=== PATIENT | female | born 1965 | race Caucasian/White ===

== ENCOUNTER 2022-03-24 09:36 | Emergency (ER) | payer MEDICAID ==
[~2022-03-24] VITALS: Ht 175.3 cm; Wt 57.1 kg
[2022-03-24 10:16] LABS: Basophils # (auto) 0 10 ^3/uL (0-0.2); Basophils % (auto) 0.6 % (0.0-2.0); Eosinophils # (auto) 0.2 10 ^3/uL (0-0.8); Eosinophils % (auto) 3.5 % (0.0-7.0); Hematocrit 41.3 % (36.0-46.0); Hemoglobin 13.5 g/dL (12.2-16.2); Lymphocytes # (auto) 1.8 10 ^3/uL (0.4-5.4); Lymphocytes % (auto) 35.4 % (10.0-50.0); Mean Corpuscular Hemoglobin 30.2 pg (28.0-32.0); Mean Corpuscular Hgb Conc. 32.8 g/dL (32.0-36.0); Mean Corpuscular Volume 92.1 fL (80.0-100.0); Monocytes # (auto) 0.5 10 ^3/uL (0-1.3); Monocytes % (auto) 9.1 % (0.0-12.0); Neutrophils # (auto) 2.7 10 ^3/uL (1.6-8.6); Neutrophils % (auto) 51.4 % (37.0-80.0); Nucleated Red Blood Cells % 0.1 %; Red Blood Cells 4.49 10^6/uL (4.0-5.20); Red Cell Distribution Width 13.1 % (11.8-14.3); White Blood Cell 5.2 10^3/uL (4.4-10.8)
[2022-03-24 10:29] LABS: Albumin 3.6 g/dL (3.4-5.0); Potassium 4.2 mmol/L (3.5-5.1)
[2022-03-24 10:32] LABS: BUN/Creatinine Ratio 20.8; Bilirubin, Total 0.4 mg/dL (0.2-1.0); Total Protein 6.9 g/dL (6.4-8.2)
[2022-03-24 14:53] VITALS: BP 147/94
== END 2022-03-24 14:53 | disposition home or self-care (01) ==
LOC: ER 09:41
DX: I10 Essential (primary) hypertension (principal); R51.9 Headache, unspecified; J45.909 Unspecified asthma, uncomplicated; F15.10 Other stimulant abuse, uncomplicated; Z98.51 Tubal ligation status
CPT/HCPCS: 36415; 36600; 80053; 82805; 83735; 84484; 85025; 93005

== ENCOUNTER 2022-06-23 08:48 | Emergency (ER) | payer MEDICAID ==
[2022-06-23] MEDS ORDERED: methylPREDNISolone SOD SUCC 125 MG/2 ML VL IV ONE (09:15)
[2022-06-23] MEDS ORDERED: AZITHROMYCIN 500MG/ 250ML 250 ML IV ONE (09:15)
[2022-06-23] MEDS ORDERED: cefTRIAXone 1GM/50ML D5W 50 ML IV ONE (09:15)
[2022-06-23 09:30] LABS: Basophils # (auto) 0.1 10 ^3/uL (0-0.2); Basophils % (auto) 0.5 % (0.0-2.0); Eosinophils # (auto) 0.1 10 ^3/uL (0-0.8); Eosinophils % (auto) 0.7 % (0.0-7.0); Hematocrit 36.7 % (36.0-46.0); Hemoglobin 12.6 g/dL (12.2-16.2); Lymphocytes # (auto) 1.8 10 ^3/uL (0.4-5.4); Lymphocytes % (auto) 15.9 % (10.0-50.0); Mean Corpuscular Hemoglobin 31.1 pg (28.0-32.0); Mean Corpuscular Hgb Conc. 34.2 g/dL (32.0-36.0); Mean Corpuscular Volume 90.8 fL (80.0-100.0); Neutrophils # (auto) 8.2 10 ^3/uL (1.6-8.6); Neutrophils % (auto) 73.9 % (37.0-80.0); Red Blood Cells 4.04 10^6/uL (4.0-5.20); Red Cell Distribution Width 12.9 % (11.8-14.3); White Blood Cell 11.1 10^3/uL (4.4-10.8)
[2022-06-23 10:05] LABS: Albumin 3.1 g/dL (3.4-5.0); Potassium 4.6 mmol/L (3.5-5.1)
[2022-06-23 10:08] LABS: BUN/Creatinine Ratio 21.1; Bilirubin, Total 0.6 mg/dL (0.2-1.0); Total Protein 6.9 g/dL (6.4-8.2)
== END 2022-06-23 09:17 | disposition left against medical advice (07) ==
LOC: ER 08:48
DX: J45.901 Unspecified asthma with (acute) exacerbation (principal); B34.9 Viral infection, unspecified; I10 Essential (primary) hypertension; E03.9 Hypothyroidism, unspecified
CPT/HCPCS: 36415; 80053; 83880; 84484; 85025; 85379

== ENCOUNTER 2025-04-06 10:45 | Inpatient (IN) | payer MEDICAID ==
[~2025-04-06] VITALS: Ht 170.2 cm; Wt 59.2 kg
--- NOTE | 2025-04-06 11:00 | ECG ---
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
--- NOTE | 2025-04-06 12:11 | ED.PDOC ---
SOB-HPI HPI Comments This is a 59 year old female GAMA presenting to the ED with chief complaint of SOB. Patient reports that she has been experiencing SOB with associated right lower chest pain for the past few days. Patient relays that she was seen at [facility] 2 days ago where she was diagnosed with pneumonia, but she had no relief from the care she received there, leaving AMA. Patient denies any N/V, cough, fever, chills, or hemoptysis. 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 History Family History Family History: Unobtainable Social History Smoker: Non-Smoker Alcohol: Occasionally Drugs: Methamphetamine Lives In: Home Constitutional: denies: chills, diaphoresis, fatigue, fever, malaise, sweats, weakness, others EENTM: denies: blurred vision, double vision, ear bleeding, ear discharge, ear drainage, ear pain, ear ringing, eye pain, eye redness, hearing loss, mouth pain, mouth swelling, nasal discharge, nose bleeding, nose congestion, nose pain, photophobia, tearing, throat pain, throat swelling, voice changes, others Respiratory: reports: shortness of breath; denies: cough, hemoptysis, orthopnea, SOB at rest, SOB with excertion, stridor, wheezing, others Cardiovascular: reports: chest pain; denies: dizzy spells, diaphoresis, Dyspnea on exertion, edema, irregular heart beat, left arm pain, lightheadedness, palpitations, PND, syncope, others Gastrointestinal: denies: abdomen distended, abdominal pain, blood streaked bowels, constipated, diarrhea, dysphagia, difficulty swallowing, hematemesis, melena, nausea, poor appetite, poor fluid intake, rectal bleeding, rectal pain, vomiting, others Genitourinary: denies: abnormal vagina bleeding, burning, dyspareunia, dysuria, flank pain, frequency, hematuria, incontinence, pain, , vagina discharge, urgency, others Neurological: denies: dizziness, fainting, headache, left sided numbness, left sided weakness, numbness, paresthesia, pre-existing deficit, right sided numbness, right sided weakness, seizure, speech problems, tingling, tremors, weakness, others Musculoskeletal: denies: back pain, gout, joint pain, joint swelling, muscle pain, muscle stiffness, neck pain, others Integumetry: denies: bruises, change in color, change in hair/nails, dryness, laceration, lesions, lumps, rash, wounds, others Allergic/Immunocompromised: denies: Difficulty Healing, Frequent Infections, Hives, Itching, others Hematologic/Lymphatic: denies: anemia, blood clots, easy bleeding, easy bruising, swollen glands, others Endocrine: denies: excessive hunger, excessive sweating, excessive thirst, excessive urination, flushing, intolerance to cold, intolerance to heat, unexplained weight gain, unexplained weight loss, others Psychiatric: denies: anxiety, bipolar disorder, depression, hopeless, panic disorder, schizophrenia, sleepless, suicidal, others All Other Systems: Reviewed and Negative Physical Exam General Appearance: No Apparent Distress, Normal HEENT: Normal ENT Inspection, Pharynx Normal, TMs Normal Neck: Full Range of Motion, Non-Tender, Normal, Normal Inspection Respiratory: Chest Non-Tender, Lungs Clear, No Accessory Muscle Use, Other (Tachypneic) Cardiovascular: No Edema, No JVD, No Murmur, No Gallop, Normal Peripheral Pulses, Tachycardia Breast Exam: Deferred Gastrointestinal: No Organomegaly, Non Tender, No Pulsatile Mass, Normal Bowel Sounds, Soft Genitalia: Deferred Pelvic: Deferred Rectal: Deferred Extremities: No calf tenderness, Normal capillary refill, Normal inspection, Normal range of motion, Non-tender, No pedal edema Musculoskeletal : Apperance: Normal 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 Was a procedure done?: No Differential Dx Differential Diagnosis: Hyponatremia, Myocardial infarction, Pneumonia, PSVT, Sinusitis, Peritonsillar Abscess X-Ray, Labs, Meds, VS Vital Signs Date Time Temp Pulse Resp B/P (MAP) Pulse Ox O2 Delivery O2 Flow Rate FiO2 04/06/25 15:53 22 97 Room Air 04/06/25 15:53 98.8 93 22 149/94 (112) 97 98.8 04/06/25 15:01 98.1 96 18 138/92 (107) 97 98.1 04/06/25 13:23 98.3 98 16 140/94 (109) 97 98.3 04/06/25 10:51 96 04/06/25 10:47 98.4 92 20 156/90 100 98.4 Lab Test 04/06/25 13:34 04/06/25 12:36 04/06/25 12:22 Range/Units Troponin I High Sensitivity < 3 L 3 L </=34 ng/L White Blood Count 14.6 H 4.4-10.8 10^3/uL Red Blood Count 4.25 4.0-5.20 10^6/uL Hemoglobin 12.9 12.2-16.2 g/dL Hematocrit 38.1 36.0-46.0 % Mean Corpuscular Volume 89.8 80.0-100.0 fL Mean Corpuscular Hemoglobin 30.5 28.0-32.0 pg Mean Corpuscular Hemoglobin Concent 34.0 32.0-36.0 g/dL Red Cell Distribution Width 13.4 11.8-14.3 % Platelet Count 291 140-450 10^3/uL Mean Platelet Volume 9.2 6.9-10.8 fL Neutrophils (%) (Auto) 82.1 H 37.0-80.0 % Lymphocytes (%) (Auto) 10.0 10.0-50.0 % Monocytes (%) (Auto) 7.3 0.0-12.0 % Eosinophils (%) (Auto) 0.5 0.0-7.0 % Basophils (%) (Auto) 0.1 0.0-2.0 % Neutrophils # (Auto) 12.0 H 1.6-8.6 10 ^3/uL Lymphocytes # (Auto) 1.5 0.4-5.4 10 ^3/uL Monocytes # (Auto) 1.1 0-1.3 10 ^3/uL Eosinophils # (Auto) 0.1 0-0.8 10 ^3/uL Basophils # (Auto) 0 0-0.2 10 ^3/uL Nucleated Red Blood Cells 0.0 % Sodium Level 138 136-145 mmol/L Potassium Level 2.9 L 3.5-5.1 mmol/L Chloride Level 97 L 98-107 mmol/L Carbon Dioxide Level 30 20-31 mmol/L Anion Gap 11 5-15 Blood Urea Nitrogen 11 9-23 mg/dL Creatinine 0.90 0.550-1.02 mg/dL Glomerular Filtration Rate Calc 74 >90 mL/min BUN/Creatinine Ratio 12.2 10.0-20.0 Serum Glucose 124 H 74-106 mg/dL Calcium Level 9.9 8.7-10.4 mg/dL Urine Color Yellow Yellow Urine Clarity Turbid H Clear Urine pH 6.5 5.0-9.0 Urine Specific [place] 1.033 1.001-1.035 Urine Protein 2+ H Negative Urine Ketones Negative Negative Urine Blood 1+ H Negative /uL Urine Nitrite Negative Negative Urine Bilirubin Negative Negative Urine Urobilinogen 3 H Negative mg/dL Urine Leukocyte Esterase 3+ Negative /uL Urine RBC 13 0 - 4 /hpf Urine Microscopic WBC 142 H 0-5 /HPF Urine Squamous Epithelial Cells Mod <5 /hpf Urine Bacteria Few H None Seen /hpf Urine Mucus Few None Seen Urine Glucose Normal Normal mg/dL Time of 1ST Reevaluation: 13:07 Reevaluation 1ST: Unchanged Patient Education/Counseling: Diagnosis, Treatment Family Education/Counseling: No Family Present SEPSIS Sepsis Screen Date sepsis recognized/suspect: Apr 06, 2025 Time Sepsis recognized/suspect: 1051 Recent Procedure: No On Antibiotic Therapy: Yes Respiratory Rate >20: No Heart Rate >90: Yes Temp<36 C (96.8 F) or >38.3 C: No SBP <90 or MAP <65 mmHG: No New Acute Mental Status Change: No Is the patient on CPAP, BIPAP,: No Physician Orders Chest Portable (04/06/25 12:10) Electrocardigram (04/06/25 12:10) Blood Culture (04/06/25 12:10) Electrocardigram (04/06/25 13:10) Electrocardigram (04/06/25 15:10) Vital Signs Date Time Temp Pulse Resp B/P (MAP) Pulse Ox O2 Delivery O2 Flow Rate FiO2 04/06/25 15:53 22 97 Room Air 04/06/25 15:53 98.8 93 22 149/94 (112) 97 98.8 04/06/25 15:01 98.1 96 18 138/92 (107) 97 98.1 04/06/25 13:23 98.3 98 16 140/94 (109) 97 98.3 04/06/25 10:51 96 04/06/25 10:47 98.4 92 20 156/90 100 98.4 Laboratory Tests Test 04/06/25 12:36 White Blood Count 14.6 10^3/uL (4.4-10.8) H Departure 1 Departure Time of Disposition: 16:04 (Patient with suspected sepsis likely secondary to pneumonia. Patient also with hypokalemia and we will replete the patient's potassium. We will admit patient for further workup and expert consultation. Ordered a CT scan of the patient's chest to better evaluate a fine x-ray find ings) Impression: Primary Impression: Pneumonia Additional Impressions: Acute and chronic respiratory failure Suspected sepsis Disposition: ADMITTED INPATIENT Admit to: Tele Condition: Guarded Critical Care Note Critical Care Time?: No Stability Stability form required: No Heart Score Heart Score: Heart Score Response (Comments) Value History N/A 0 EKG N/A 0 Age N/A 0 Risk Factors N/A 0 Troponin N/A 0 Total 0 I personally scribed for JAH HARLEY MD ([email or web address]) on 04/06/25 at 12:11. Electronically submitted by Bon Anderson ([email or web address]). JAH HARLEY MD Apr 06, 2025 12:11
--- NOTE | 2025-04-06 12:45 | DVH ---
CHEST RADIOGRAPH INDICATION: sob TECHNIQUE: Single frontal view of the chest was obtained. COMPARISON: XR CHEST 1 VIEW on DOS: 04/04/25 FINDINGS: Right middle lobe masslike consolidation. Left basilar atelectasis. No significant pleural effusion. No pneumothorax. Stable cardiomediastinal silhouette. IMPRESSION: Right middle lobe masslike consolidation. While this could represent pneumonia, recommend follow-up radiograph in few weeks or CT chest to exclude underlying mass given its appearance.
[2025-04-06 12:54] LABS: Hematocrit 38.1 % (36.0-46.0); Hemoglobin 12.9 g/dL (12.2-16.2); Mean Corpuscular Hemoglobin 30.5 pg (28.0-32.0); Mean Corpuscular Volume 89.8 fL (80.0-100.0); Nucleated Red Blood Cells % 0.0 %
[2025-04-06 13:04] LABS: Sodium 138 mmol/L (136-145)
[2025-04-06 13:05] LABS: Anion Gap 11 (5-15); Calcium 9.9 mg/dL (8.7-10.4); Carbon Dioxide 30 mmol/L (20-31)
[2025-04-06 13:06] LABS: Chloride 97 mmol/L (98-107); Potassium 2.9 mmol/L (3.5-5.1)
[2025-04-06 13:10] LABS: BUN/Creatinine Ratio 12.2 (10.0-20.0); Blood Urea Nitrogen 11 mg/dL (9-23)
[2025-04-06 13:11] LABS: Glucose 124 mg/dL (74-106)
[2025-04-06 13:22] LABS: Urine Protein, UAD 2+ (Negative)
[2025-04-06] MEDS ORDERED: HYDROcodone-ACET 5/325MG TAB PO PRN (16:45)
[2025-04-06] MEDS ORDERED: DOCUSATE SOD 100 MG CAP PO PRN (16:45)
[2025-04-06] MEDS ORDERED: ACETAMINOPHEN 325 MG TAB PO PRN (16:45)
[2025-04-06] MEDS ORDERED: ONDANSETRON HCL 4 MG/2 ML VIAL IV PRN (16:45)
[2025-04-06 17:00] LABS: Lactic Acid w/Reflex 2.2 mmol/L (0.4-2.0)
--- NOTE | 2025-04-06 17:19 | DVH ---
EXAM: CT CHEST WITHOUT CONTRAST INDICATION: better evaluate xray findings TECHNIQUE: Noncontrast axial images of the chest have been obtained along with coronal and sagittal reformatted images. All CT scans at this facility use dose modulation, iterative reconstruction, and/or weight based dosing when appropriate to reduce radiation dose to as low as reasonably achievable. COMPARISON: XY CHEST PORTABLE on DOS: 04/06/25 FINDINGS: LOWER NECK: Unremarkable LYMPH NODES/MEDIASTINUM: Mildly prominent right lower paratracheal lymph node measuring 10 mm. CARDIOVASCULAR: Normal cardiac size. No pericardial effusion. No aneurysmal dilatation of the great vessels. Vascular calcifications. UPPER ABDOMEN: Unremarkable. MUSCULOSKELETAL: No acute fracture or aggressive focal osseous lesion. Multilevel degenerative change of the visualized spine. Grade 1 anterolisthesis C7 over T1 with chronicity and subsequent osseous remodeling of the superior endplate of T1. CHEST WALL: Unremarkable. LUNG PARENCHYMA/PLEURAL SPACE: Small right-sided pleural effusion with area of ground-glass in the posterior basilar segment in the right lower lobe with inconspicuous bronchiolectasis. Large consolidation of the entirety of the right middle lobe with subsequent collapse. Associated air bronchograms of the right middle lobe consolidation. Small scattered 1-2 mm micro nodules in the lungs. IMPRESSION: 1. Large consolidation of the right middle lobe with subsequent collapse. 2. Small right-sided pleural effusion with area of ground-glass in the posterior basilar segment in the right lower lobe with inconspicuous bronchiolectasis. 3. Overall imaging findings likely compatible with pneumonia however recommend follow-up CT of the chest with contrast in 6-8 weeks to exclude underlying mass 4. Small scattered 1-2 mm micro nodules in the lungs.
--- NOTE | 2025-04-06 17:26 | DVHHP2 ---
History of Present Illness Reason for Visit: Pneumonia, unspecified organism History of Present Illness The patient is a 59-year-old female with past medical history of asthma, hypertension, and thyroid disease who presented to [facility] ED with complaint of shortness of breaths. Patient reports that she has been experiencing shortness of breaths associated with right lower chest pain for the past 3 days. Patient reports that she was seen at [facility] 2 days ago where she was diagnosed with pneumonia, but she had no relief from the care she received there, leaving AMA. Patient was seen and evaluated in the ED, laboratory data shows WBC 14.6, platelets 291, sodium 138, potassium 2.9, BUN 11, creatinine 0.90, GFR 74, glucose 124, calcium 9.9, troponin 3, blood pressure 149/94, heart rate 96, temperature 98.6 F, O2 saturation 97% on oxygen. Chest CT revealing large consolidation of the right middle lobe with subsegment collapse; small right-sided pleural effusion with area of ground- glass in the posterior bibasilar segment in the right lower lobe with inconspi cuous bronchiolectasis; overall imaging finding likely compatible with pneumonia. Patient was started on IV antibiotic regimen azithromycin, please see medication orders section in the computer. On my assessment, patient denied chest pain, no headache, dizziness, diaphoresis, currently on oxygen, no diarrhea, nausea, vomiting, fever, no chills. Patient was admitted for further evaluation and medical management. Past Medical History Asthma, HTN, Thyroid Past Surgical History BTL Family History Reviewed, noncontributory to the management of this case. Past Social History The patient lives at home, denies smoking, drinks alcohol occasionally, uses methamphetamine. Review of Systems Constitutional: Yes: Weakness; No: Fever, Chills, Sweats, Malaise, Other Eyes: No: Pain, Vision change, Conjunctivae inflammation, Eyelid inflammation, Other, Redness ENT: No: Ear pain, Ear discharge, Nose pain, Nose discharge, Nose congestion, Mouth pain, Mouth swelling, Throat pain, Throat swelling, Other Respiratory: Shortness of breath, Other (SOB at rest); No: Cough, Dry, SOB with excertion, Wheezing, Hemoptysis, Pleuritic Pain, Sputum, Wheezing Cardiovascular: Chest Pain; No: Palpitations, Orthopnea, Paroxysmal Noc. Dyspnea, Edema, Lt Headedness, Other Gastrointestinal: No: Nausea, Vomiting, Abdominal Pain, Diarrhea, Constipation, Melena, Hematochezia, Other Genitourinary: No Dysuria, No Frequency, No Incontinence, No Hematuria, No Retention, No Other Musculoskeletal: No: other, neck pain, shoulder pain, arm pain, back pain, hand pain, leg pain, foot pain Skin: No: Rash, Lesions, Jaundice, Bruising, Other Neurological: No: Weakness, Numbness, Incoordination, Change in speech, Co nfusion, Seizures, Other Allergies: Coded Allergies: NO KNOWN ALLERGIES (Unverified , 12/22/15) Medications Current Medications Medications Dose Ordered Sig/Reyna Route Start Time Stop Time Status Last Admin Dose Admin Potassium Chloride 100 ml @ 50 mls/hr Q2H IV 04/06/25 16:15 04/06/25 20:14 Azithromycin 250 ml @ 125 mls/hr DAILY IV 04/07/25 10:00 Ceftriaxone Sodium 50 ml @ 100 mls/hr DAILY@09 IV 04/07/25 09:00 Sodium Chloride 1,000 ml @ 60 mls/hr [id number] IV 04/06/25 16:45 Acetaminophen/ Hydrocodone Bitart 1 tab Q4HP PRN PO 04/06/25 16:45 Ondansetron HCl 4 mg Q4HP PRN IV 04/06/25 16:45 Docusate Sodium 100 mg BIDPRN PRN PO 04/06/25 16:45 Acetaminophen 650 mg Q6HP PRN PO 04/06/25 16:45 Exam Vital Signs Vital Signs Date Time Temp Pulse Resp B/P (MAP) Pulse Ox O2 Delivery O2 Flow Rate FiO2 04/06/25 15:53 22 97 Room Air 04/06/25 15:53 98.8 93 149/94 (112) 98.8 General Appearance: Alert, Oriented X3, Cooperative, No acute distress HEENT: Atraumatic, PERRLA, EOMI, Mucous membr. moist/pink Respiratory: Normal air movement, Other (Diminished breath sounds) Cardiovascular: Regular rate, Normal S1, Normal S2, No murmurs Abdominal: Normal bowel sounds, Soft, No tenderness, No hepatospenomegaly, No masses Extremities: No clubbing, No cyanosis, No edema, Normal pulses, No tenderness/swelling Skin: No rashes, No significant lesion Neuro: Normal speech, Normal tone, Sensation intact, Cranial nerves 3-12 NL, Reflexes 2+, Other (Generalized weakness) Psych/Mental Status: Mental status NL, Mood NL Labs/Xrays Labs Test 04/06/25 16:13 04/06/25 13:34 04/06/25 12:36 04/06/25 12:22 Range/Units Lactic Acid Level 2.2 *H 0.4-2.0 mmol/L Troponin I High Sensitivity < 3 L </=34 ng/L White Blood Count 14.6 H 4.4-10.8 10^3/uL Red Blood Count 4.25 4.0-5.20 10^6/uL Hemoglobin 12.9 12.2-16.2 g/dL Hematocrit 38.1 36.0-46.0 % Mean Corpuscular Volume 89.8 80.0-100.0 fL Mean Corpuscular Hemoglobin 30.5 28.0-32.0 pg Mean Corpuscular Hemoglobin Concent 34.0 32.0-36.0 g/dL Red Cell Distribution Width 13.4 11.8-14.3 % Platelet Count 291 140-450 10^3/uL Mean Platelet Volume 9.2 6.9-10.8 fL Neutrophils (%) (Auto) 82.1 H 37.0-80.0 % Lymphocytes (%) (Auto) 10.0 10.0-50.0 % Monocytes (%) (Auto) 7.3 0.0-12.0 % Eosinophils (%) (Auto) 0.5 0.0-7.0 % Basophils (%) (Auto) 0.1 0.0-2.0 % Neutrophils # (Auto) 12.0 H 1.6-8.6 10 ^3/uL Lymphocytes # (Auto) 1.5 0.4-5.4 10 ^3/uL Monocytes # (Auto) 1.1 0-1.3 10 ^3/uL Eosinophils # (Auto) 0.1 0-0.8 10 ^3/uL Basophils # (Auto) 0 0-0.2 10 ^3/uL Nucleated Red Blood Cells 0.0 % Sodium Level 138 136-145 mmol/L Potassium Level 2.9 L 3.5-5.1 mmol/L Chloride Level 97 L 98-107 mmol/L Carbon Dioxide Level 30 20-31 mmol/L Anion Gap 11 5-15 Blood Urea Nitrogen 11 9-23 mg/dL Creatinine 0.90 0.550-1.02 mg/dL Glomerular Filtration Rate Calc 74 >90 mL/min BUN/Creatinine Ratio 12.2 10.0-20.0 Serum Glucose 124 H 74-106 mg/dL Calcium Level 9.9 8.7-10.4 mg/dL Urine Color Yellow Yellow Urine Clarity Turbid H Clear Urine pH 6.5 5.0-9.0 Urine Specific [place] 1.033 1.001-1.035 Urine Protein 2+ H Negative Urine Ketones Negative Negative Urine Blood 1+ H Negative /uL Urine Nitrite Negative Negative Urine Bilirubin Negative Negative Urine Urobilinogen 3 H Negative mg/dL Urine Leukocyte Esterase 3+ Negative /uL Urine RBC 13 0 - 4 /hpf Urine Microscopic WBC 142 H 0-5 /HPF Urine Squamous Epithelial Cells Mod <5 /hpf Urine Bacteria Few H None Seen /hpf Urine Mucus Few None Seen Urine Glucose Normal Normal mg/dL PATIENT: MIRELA FRANCOIS ACCT: [id number] UNIT: [id number] : 1965 LOC: ER ROOM / BED: / AGE / SEX: 59 / F ADM STATUS: REG ER SERVICE 1602 ORDERING PHYSICIAN: JAH HARLEY MD PROCEDURE(s): CX2CT - CHEST WITHOUT CONTRAST REASON: better evaluate xray findings ORDER NUMBER(s): [id number], ACCESSION NUMBER(s): [id number] EXAM: CT CHEST WITHOUT CONTRAST INDICATION: better evaluate xray findings TECHNIQUE: Noncontrast axial images of the chest have been obtained along with coronal and sagittal reformatted images. All CT scans at this facility use dose modulation, iterative reconstruction, and/or weight based dosing when appropriate to reduce radiation dose to as low as reasonably achievable. COMPARISON: XY CHEST PORTABLE on DOS: 04/06/25 FINDINGS: LOWER NECK: Unremarkable LYMPH NODES/MEDIASTINUM: Mildly prominent right lower paratracheal lymph node measuring 10 mm. CARDIOVASCULAR: Normal cardiac size. No pericardial effusion. No aneurysmal dilatation of the great vessels. Vascular calcifications. UPPER ABDOMEN: Unremarkable. MUSCULOSKELETAL: No acute fracture or aggressive focal osseous lesion. Multilevel degenerative change of the visualized spine. Grade 1 anterolisthesis C7 over T1 with chronicity and subsequent osseous remodeling of the superior endplate of T1. CHEST WALL: Unremarkable. LUNG PARENCHYMA/PLEURAL SPACE: Small right-sided pleural effusion with area of ground-glass in the posterior basilar segment in the right lower lobe with inconspicuous bronchiolectasis. Large consolidation of the entirety of the right middle lobe with subsequent collapse. Associated air bronchograms of the right middle lobe consolidation. Small scattered 1-2 mm micro nodules in the lungs. IMPRESSION: 1. Large consolidation of the right middle lobe with subsequent collapse. 2. Small right-sided pleural effusion with area of ground-glass in the posterior basilar segment in the right lower lobe with inconspicuous bronchiolectasis. 3. Overall imaging findings likely compatible with pneumonia however recommend follow-up CT of the chest with contrast in 6-8 weeks to exclude underlying mass 4. Small scattered 1-2 mm micro nodules in the lungs. ORDERING PHYSICIAN: JAH HARLEY MD PROCEDURE(s): CXRP - CHEST PORTABLE REASON: sob ORDER NUMBER(s): [id number], ACCESSION NUMBER(s): [id number] CHEST RADIOGRAPH INDICATION: sob TECHNIQUE: Single frontal view of the chest was obtained. COMPARISON: XR CHEST 1 VIEW on DOS: 04/04/25 FINDINGS: Right middle lobe masslike consolidation. Left basilar atelectasis. No significant pleural effusion. No pneumothorax. Stable cardiomediastinal silhouette. IMPRESSION: Right middle lobe masslike consolidation. While this could represent pneumonia, recommend follow-up radiograph in few weeks or CT chest to exclude underlying mass given its appearance. SEPSIS Sepsis Screen Date sepsis recognized/suspect: Apr 06, 2025 Time Sepsis recognized/suspect: 1051 Recent Procedure: No On Antibiotic Therapy: Yes Respiratory Rate >20: No Heart Rate >90: Yes Temp<36 C (96.8 F) or >38.3 C: No SBP <90 or MAP <65 mmHG: No New Acute Mental Status Change: No Is the patient on CPAP, BIPAP,: No Physician Orders Chest Portable (04/06/25 12:10) Electrocardigram (04/06/25 12:10) Blood Culture (04/06/25 12:10) Electrocardigram (04/06/25 13:10) Electrocardigram (04/06/25 15:10) Cefepime 1gm/50ml (Maxipime 1gm/50ml) (04/06/25 16:15) Notify Md If Map <65 Or Bp<90 (04/06/25 16:02) If Map<65 Start Vasopressor (04/06/25 16:02) Sepsis Reassesment After Fluid (04/06/25 17:02) Chest Without Contrast (04/06/25 16:02) Potassium Chl 20meq/100ml (04/06/25 16:15) Azithromycin 500mg/250ml (Zithromax 500m (04/07/25 10:00) Ceftriaxone 1gm/50ml (Rocephin) (04/07/25 09:00) Allergies (04/06/25 16:38) Code Status (04/06/25 16:38) Sodium Chloride 0.9% (04/06/25 16:45) Oxygen Per Hour (04/06/25 16:38) Hydrocodone-Acet 5/325mg Tab (Hume 5/32 (04/06/25 16:45) Ondansetron Hcl (Zofran) (04/06/25 16:45) Docusate Sodium Capsule (Colace Capsule) (04/06/25 16:45) Complete Blood Count (04/07/25 04:00) Comprehensive Metabolic Panel (04/07/25 04:00) Cardiac Diet-2gna,Lofat,Lochol (04/06/25 Dinner) Condition: Serious (04/06/25 16:38) Acetaminophen Tablet (Tylenol Tablet) (04/06/25 16:45) Bedrest With Bathroom Privileg (04/06/25 16:38) Sequential Compression Device (04/06/25 ) Vital Signs Date Time Temp Pulse Resp B/P (MAP) Pulse Ox O2 Delivery O2 Flow Rate FiO2 04/06/25 15:53 22 97 Room Air 04/06/25 15:53 98.8 93 22 149/94 (112) 97 98.8 04/06/25 15:01 98.1 96 18 138/92 (107) 97 98.1 04/06/25 13:23 98.3 98 16 140/94 (109) 97 98.3 04/06/25 10:51 96 04/06/25 10:47 98.4 92 20 156/90 100 98.4 Laboratory Tests Test 04/06/25 12:36 04/06/25 16:13 White Blood Count 14.6 10^3/uL (4.4-10.8) H Lactic Acid Level 2.2 mmol/L (0.4-2.0) *H Assessment/Plan Assessment/Plan Pneumonia, unspecified organism Hypokalemia Leukocytosis, unspecified Acute and chronic respiratory failure Generalized weakness Plan 1. Admit to telemetry unit 2. Breathing treatment 3. Pain control management 4. IV antibiotic management 5. Management of fluids and electrolytes 6. Consultation for hospitalist 7. Diagnostic test chest CT 8. DVT prophylaxis -on SCDs 9. Repeat labs CBC, CMP in a.m. 10. Home medication reviewed and reconciled 11. Continue with current medical management 12. Treatment plan discussed with patient and RN. Patient verbalized u nderstanding. Plan discussed with: Patient, Other (RN) My Orders Orders - DEREK REYNOLDS DNP Procedure Category Date Status Time Azithromycin PHA 04/07/25 In Process 500mg/250ml 10:00 Ceftriaxone 1gm/50ml PHA 04/07/25 In Process (Rocephin) 09:00 Allergies ABAD 04/06/25 In Process 16:38 Code Status CODE 04/06/25 Transmitted 16:38 Sodium Chloride 0.9% PHA 04/06/25 In Process 16:45 Oxygen Per Hour RT 04/06/25 Transmitted 16:38 Hydrocodone-Acet PHA 04/06/25 In Process 5/325mg Tab (Hume 16:45 Ondansetron Hcl PHA 04/06/25 In Process (Zofran) 16:45 Docusate Sodium PHA 04/06/25 In Process Capsule (Colace 16:45 Complete Blood Count LAB 04/07/25 Verified 04:00 Comprehensive LAB 04/07/25 Verified Metabolic Panel 04:00 Cardiac DIET 04/06/25 Transmitted Diet-2gna,Lofat,Lochol Dinner Condition: Serious ABAD 04/06/25 In Process 16:38 Acetaminophen Tablet PHA 04/06/25 In Process (Tylenol Tablet) 16:45 Bedrest With Bathroom ABAD 04/06/25 In Process Privileg 16:38 Sequential ABAD 04/06/25 In Process Compression Device Problem List: (1) Pneumonia, unspecified organism (2) Hypokalemia (3) Leukocytosis, unspecified (4) Acute and chronic respiratory failure (5) Generalized weakness Date of Service: Apr 06, 2025 Billing Provider: DEREK REYNOLDS DNP Common Visit Codes: [id number] INP/OBS CARE (HIGH) DEREK REYNOLDS DNP Apr 06, 2025 17:26
[2025-04-06] MEDS ORDERED: NITROGLYCERIN 0.4 MG SL TAB SL PRN (17:30)
[2025-04-06] MEDS: SODIUM CHLORIDE 0.9% 1,000 ML IV SCH (17:58)
[2025-04-06] MEDS: LACTATED RINGER'S 1,800 ML IV ONE (17:58)
[2025-04-06] MEDS: CEFEPIME 1GM/50ML 50 ML IV ONE (17:58)
[2025-04-06] MEDS: VANCOMYCIN 1GM/250ML KIT 250 ML IV ONE (17:58)
[2025-04-06 18:26] VITALS: PULSE 101; RESP 17; O2SAT 97
[2025-04-06] MEDS ORDERED: MORPHINE SULFATE 4 MG/ML SYR/VIAL IV PRN (18:30)
[2025-04-06 19:40] VITALS: PULSE 91; RESP 21; O2SAT 98
[2025-04-06] MEDS: POTASSIUM CHL 20MEQ/100ML 100 ML IV SCH (20:19)
[2025-04-06 21:58] VITALS: BP 165/108; PULSE 91; RESP 18; TEMP 98.4; O2SAT 98
[2025-04-06] MEDS: POTASSIUM CHL 20MEQ/100ML 100 ML IV ONE (22:51)
[2025-04-06] MEDS ORDERED: FLUT1AER11 IN (23:36)
[2025-04-06] MEDS ORDERED: GABA300T4 PO (23:37)
[2025-04-06] MEDS ORDERED: LORA-1121 PO (23:38)
[2025-04-06] MEDS ORDERED: AMLO1TAB23 PO (23:38)
[2025-04-06] MEDS ORDERED: LIDO5DIS21 TOP (23:39)
[2025-04-06] MEDS ORDERED: METO25TA93 PO (23:39)
[2025-04-07] VITALS (10 sets, daily range): BP systolic 133–159; BP diastolic 60–92; PULSE 83–108; RESP 16–18; TEMP 98–98.9; O2SAT 94–97
[2025-04-07 07:15] LABS: Hematocrit 33.4 % (36.0-46.0); Hemoglobin 11.6 g/dL (12.2-16.2); Mean Corpuscular Hemoglobin 31.0 pg (28.0-32.0); Mean Corpuscular Volume 89.5 fL (80.0-100.0); Nucleated Red Blood Cells % 0.1 %
[2025-04-07 07:33] LABS: Alanine Aminotransferase 17 U/L (7-40); Albumin 3.4 g/dL (3.2-4.8); Alkaline Phosphatase 102 U/L (46-116); Anion Gap 9 (5-15); BUN/Creatinine Ratio 13.6 (10.0-20.0); Blood Urea Nitrogen 9 mg/dL (9-23); Calcium 9.0 mg/dL (8.7-10.4); Carbon Dioxide 27 mmol/L (20-31); Chloride 105 mmol/L (98-107); Glucose 105 mg/dL (74-106); Potassium 3.8 mmol/L (3.5-5.1); Sodium 141 mmol/L (136-145); Total Protein 6.0 g/dL (5.7-8.2)
[2025-04-07 07:34] LABS: Bilirubin, Total 0.3 mg/dL (0.2-1.0)
[2025-04-07] MEDS: AZITHROMYCIN 500MG/250ML 250 ML IV SCH (10:02)
--- NOTE | 2025-04-07 15:09 | DVHPN2 ---
Reviewed: H&P Changes from previous H/P or p: No Changes General: Per HPI Eyes: No Pain, No Vision change, No Conjunctivae inflammation, No Eyelid inflammation, No Other, No Redness ENT: No Ear pain, No Ear discharge, No Nose pain, No Nose discharge, No Nose congestion, No Mouth pain, No Mouth swelling, No Throat pain, No Throat swelling, No Other Cardiovascular: Chest Pain; No Palpitations, No Orthopnea, No Paroxysmal Noc. Dyspnea, No Edema, No Lt Headedness, No Other Respiratory: No Cough, No Dry; Shortness of breath; No SOB with excertion, No Wheezing, No Hemoptysis, No Pleuritic Pain, No Sputum; Other (SOB at rest) Gastrointestinal: No Nausea, No Vomiting, No Abdominal Pain, No Diarrhea, No Constipation, No Melena, No Hematochezia, No Other Genitourinary: No Dysuria, No Frequency, No Incontinence, No Hematuria, No Retention, No Other Musculoskeletal: No other, No neck pain, No shoulder pain, No arm pain, No back pain, No hand pain, No leg pain, No foot pain Skin: No Rash, No Lesions, No Jaundice, No Bruising, No Other Objective Vitals Vital Signs Date Time Temp Pulse Resp B/P (MAP) Pulse Ox O2 Delivery O2 Flow Rate FiO2 04/07/25 12:49 98.2 84 18 133/78 (96) 97 98.2 04/07/25 08:00 Room Air* 0 21 Intake/Output Intake and Output 04/07/25 07:00 Intake Total 2817.5 ml Balance 2817.5 ml Intake Oral 450 ml IV Total 2367.5 ml # Voids 3 # Bowel Movements 1 Exam GEN: Healthy appearing, well-developed, NAD. HEENT: NC/AT; MMM. CV: RRR, no m/r/g. LUNGS: CTAB, no w/r/c. ABD: Soft, NT/ND, NBS, no masses or organomegaly. EXT: skin Warm, well perfused. no rashes. No clubbing, cyanosis, or edema. NEURO: Ambulating with no limitations. No focal deficits. Medications Current Medications Medications Dose Ordered Sig/Reyna Route Start Time Stop Time Status Last Admin Dose Admin Azithromycin 250 ml @ 125 mls/hr DAILY IV 04/07/25 10:00 04/07/25 10:02 125 MLS/HR Ceftriaxone Sodium 50 ml @ 100 mls/hr DAILY@09 IV 04/07/25 09:00 04/07/25 08:53 100 MLS/HR Sodium Chloride 1,000 ml @ 60 mls/hr [id number] IV 04/06/25 16:45 04/07/25 08:55 60 MLS/HR Acetaminophen/ Hydrocodone Bitart 1 tab Q4HP PRN PO 04/06/25 16:45 Ondansetron HCl 4 mg Q4HP PRN IV 04/06/25 16:45 Docusate Sodium 100 mg BIDPRN PRN PO 04/06/25 16:45 Acetaminophen 650 mg Q6HP PRN PO 04/06/25 16:45 Nitroglycerin 0.4 mg Q5MINP PRN SL 04/06/25 17:30 Morphine Sulfate 2 mg Q30M PRN IV 04/06/25 18:30 Amlodipine Besylate 10 mg DAILY PO 04/06/25 22:35 04/07/25 08:53 10 MG Laboratory Results Laboratory Tests 04/07/25 06:19 Chemistry Test 04/07/25 06:19 Albumin 3.4 g/dL (3.2-4.8) Calcium Level 9.0 mg/dL (8.7-10.4) Total Protein 6.0 g/dL (5.7-8.2) LFT Test 04/07/25 06:19 Alanine Aminotransferase (ALT) 17 U/L (7-40) Alkaline Phosphatase 102 U/L (46-116) Aspartate Amino Transferase (AST) 13 U/L (13-40) Total Bilirubin 0.3 mg/dL (0.2-1.0) Urinalysis Test 04/06/25 12:22 Urine Color Yellow (Yellow) Urine Clarity Turbid (Clear) H Urine pH 6.5 (5.0-9.0) Urine Specific [place] 1.033 (1.001-1.035) Urine Protein 2+ (Negative) H Urine Ketones Negative (Negative) Urine Blood 1+ /uL (Negative) H Urine Nitrite Negative (Negative) Urine Bilirubin Negative (Negative) Urine Urobilinogen 3 mg/dL (Negative) H Urine Leukocyte Esterase 3+ /uL (Negative) Urine RBC 13 /hpf (0 - 4) Urine Microscopic WBC 142 /HPF (0-5) H Urine Squamous Epithelial Cells Mod /hpf (<5) Urine Bacteria Few /hpf (None Seen) H Urine Mucus Few (None Seen) Urine Glucose Normal mg/dL (Normal) Microbiology Microbiology Date/Time Source Procedure Growth Status 04/07/25 06:00 Nose MRSA Screen - Final Complete 04/06/25 12:43 Blood Blood Culture - Preliminary NO GROWTH AFTER 24 HOURS OF INCUBATION. Resulted Labs and/or images reviewed: Labs reviewed by me, Image(s) reviewed by me Assessment/Plan Assessment/Plan 59-year-old female with past medical history of asthma, hypertension, and thyroid disease who presented to [facility] ED with complaint of shortness of breaths. Patient reports that she has been experiencing shortness of breaths associated with right lower chest pain for the past 3 days. Patient reports that she was seen at [facility] 2 days ago where she was diagnosed with pneumonia, but she had no relief from the care she received there, leaving AMA. 04/07: 59 female here with shortness of breath cough. Leukocytosis, lactic acidosis. Admitted for acute pneumonia Gram-negative Gram-positive. Patient is started on azithromycin ceftriaxone. We will also put in prn Atrovent 0.5 q.6 PRN and albuterol 0.25 q.6 PRN. Patient also knees COVID flu swab. Continue slow fluids diagnosis: Sepsis due to below Pneumonia, Gram-negative Gram-positive likely Hypokalemia Leukocytosis, unspecified Acute and chronic respiratory failure Generalized weakness plan: IV antibiotics IV fluids Prn inhalers Continue home meds Telemetry Full code Plan discussed with: Patient My Orders Orders - JOSE RAMON EVERETT MD Procedure Category Date Status Time May Shower ABAD 04/07/25 In Process 14:57 Date of Service: Apr 07, 2025 Billing Provider: JOSE RAMON EVERETT MD Common Visit Codes: [id number] INP/OBS CARE(HIGH) JOSE RAMON EVERETT MD Apr 07, 2025 15:09
[2025-04-07] MEDS: guaiFENesin-DM 100/10mg/5ml SYR PO PRN (18:12)
[2025-04-07 23:08] LABS: COVID19 ANTIGEN SOFIA FIA NEGATIVE (NEGATIVE)
--- NOTE | 2025-04-07 23:08 | DVHINCON2 ---
Date of service: Apr 07, 2025 Referring Physician CHUCHO Bridges Reason for Consultation Acute on chronic hypoxic respiratory failure and pneumonia. History of Present Illness A 59-year-old woman with past medical history of asthma, hypertension, and thyroid disease who presented to ED on 04/06/25 with complaint of shortness of breath. Patient reports that she has been experiencing shortness of breath associated with right lower chest pain x3 days. Patient reports she was seen at [facility] 2 days ago where she was diagnosed with pneumonia, but she had no relief from the care she received there, leaving [place]. Workup in ED revealed WBC 14.6, platelets 291, sodium 138, potassium 2.9, BUN 11, creatinine 0.90, GFR 74, glucose 124, calcium 9.9, troponin 3. Initial vitals showed blood pressure 149/94, heart rate 96, temperature 98.6 F, O2 saturation 97% on oxygen. Chest CT revealing large consolidation of the right middle lobe with subsegment collapse; small right-sided pleural effusion with area of ground-glass in the posterior bibasilar segment in the right lower lobe with inconspicuous bronchiolectasis; overall imaging finding likely compatible with pneumonia. Patient was admitted for further care. Pulmonary consultation is requested for evaluation and management of acute on chronic hypoxic respiratory failure and pneumonia. Review of Systems: 14-point review of systems negative unless otherwise noted above. Past Medical History Asthma, hypertension, thyroid disease Past Surgical History Bilateral tubal ligation Medications: Reviewed. Allergies: No known drug allergies. Family History: No family history of premature CAD. No family history of lung disorders. Social History: Nonsmoker. Drinks alcohol occasionally, uses methamphetamine Family History: FH: cancer FH: hypertension Allergies: Coded Allergies: NO KNOWN ALLERGIES (Unverified , 12/22/15) Home Meds Reported Medications Lidocaine (LIDODERM 5% TOPICAL PATCH) 1 Patch Ph, 1 PATCH TOP, PATCH 04/06/25 Metoprolol Succinate (Metoprolol Succinate Er) 25 Mg Tab, 10 MG PO DAILY, TAB 04/06/25 Amlodipine Besylate (Amlodipine Besylate) 10 Mg Tab, 1 TAB PO HS, #30 TAB 5 Refills 04/06/25 Lorazepam (ATIVAN TABLET) 0.5 Mg Tb, 1 TAB PO HS, #90 TAB 04/06/25 Gabapentin (Once-Daily) (Gabapentin) 300 Mg Tab, 800 MG PO TID, TAB 04/06/25 Fluticasone-Salmeterol (Fluticasone Propionate/SA 100-50 Mcg/Dose) 1 Aer Aer, 1 AER IN, AER 04/06/25 Current Medications Current Medications Medications (Trade) Dose Ordered Sig/Reyna Route PRN Reason Start Time Stop Time Status Last Admin Azithromycin 250 ml @ 125 mls/hr DAILY IV 04/07/25 10:00 04/07/25 10:02 Ceftriaxone Sodium 50 ml @ 100 mls/hr DAILY@09 IV 04/07/25 09:00 04/07/25 08:53 Ipratropium [place] (Atrovent Medneb) 0.5 mg Q6HPRN PRN NEB SHORTNESS OF BREATH 04/07/25 15:15 Guaifenesin/ Dextromethorphan (Robitussin-Dm Liquid) 10 ml Q4HP PRN PO FOR COUGH 04/07/25 15:15 04/07/25 22:25 Albuterol (Ventolin Medneb) 1.25 mg Q6HP PRN NEB SHORTNESS OF BREATH 04/07/25 18:30 Vital Signs Vital Signs Date Time Temp Pulse Resp B/P (MAP) Pulse Ox O2 Delivery O2 Flow Rate FiO2 04/07/25 21:00 98.6 84 16 138/88 (105) 94 98.6 04/07/25 19:08 Room Air 0.0 04/07/25 19:08 21 Physical Exam Gen.: Patient lying in bed in no apparent distress. On supplemental oxygen. Head: Normocephalic, atraumatic. Eyes: EOMI/PERRLA. Ears: Normal hearing. Normal anatomy. Neck/trachea: Trachea midline, supple. Nose: Normal external anatomy. Mouth: Moist mucous membranes. Chest: Decreased air entry bilaterally. No wheezing or rhonchi. Cardiovascular: Positive S1, positive S2. Regular rate and rhythm. Abdomen: Positive bowel sounds in all 4 quadrants. Soft, non-tender, non- distended. : Deferred. Rectal: Deferred. Skin: Warm, dry. Intact. Extremities: 2+ radial pulses bilaterally. No lower extremity edema. Neuro: Awake, alert, oriented x3. No gross motor or sensory deficits. Cranial nerves II through XII intact. Gait not assessed. Labs/Diagnostic Data Labs Test 04/07/25 21:00 04/07/25 06:19 04/06/25 19:08 04/06/25 13:34 Range/Units White Blood Count 7.1 # 4.4-10.8 10^3/uL Red Blood Count 3.73 L 4.0-5.20 10^6/uL Hemoglobin 11.6 L 12.2-16.2 g/dL Hematocrit 33.4 #L 36.0-46.0 % Mean Corpuscular Volume 89.5 80.0-100.0 fL Mean Corpuscular Hemoglobin 31.0 28.0-32.0 pg Mean Corpuscular Hemoglobin Concent 34.6 32.0-36.0 g/dL Red Cell Distribution Width 13.2 11.8-14.3 % Platelet Count 237 140-450 10^3/uL Mean Platelet Volume 9.0 6.9-10.8 fL Neutrophils (%) (Auto) 62.8 37.0-80.0 % Lymphocytes (%) (Auto) 24.1 10.0-50.0 % Monocytes (%) (Auto) 11.0 0.0-12.0 % Eosinophils (%) (Auto) 1.9 0.0-7.0 % Basophils (%) (Auto) 0.2 0.0-2.0 % Neutrophils # (Auto) 4.4 1.6-8.6 10 ^3/uL Lymphocytes # (Auto) 1.7 0.4-5.4 10 ^3/uL Monocytes # (Auto) 0.8 0-1.3 10 ^3/uL Eosinophils # (Auto) 0.1 0-0.8 10 ^3/uL Basophils # (Auto) 0 0-0.2 10 ^3/uL Nucleated Red Blood Cells 0.1 % Sodium Level 141 136-145 mmol/L Potassium Level 3.8 3.5-5.1 mmol/L Chloride Level 105 98-107 mmol/L Carbon Dioxide Level 27 20-31 mmol/L Anion Gap 9 5-15 Blood Urea Nitrogen 9 9-23 mg/dL Creatinine 0.66 0.550-1.02 mg/dL Glomerular Filtration Rate Calc 102 >90 mL/min BUN/Creatinine Ratio 13.6 10.0-20.0 Serum Glucose 105 74-106 mg/dL Calcium Level 9.0 8.7-10.4 mg/dL Total Bilirubin 0.3 0.2-1.0 mg/dL Aspartate Amino Transferase (AST) 13 13-40 U/L Alanine Aminotransferase (ALT) 17 7-40 U/L Alkaline Phosphatase 102 46-116 U/L Total Protein 6.0 5.7-8.2 g/dL Albumin 3.4 3.2-4.8 g/dL Lactic Acid Level 1.3 0.4-2.0 mmol/L Troponin I High Sensitivity < 3 L </=34 ng/L Test 04/06/25 12:22 Range/Units Urine Color Yellow Yellow Urine Clarity Turbid H Clear Urine pH 6.5 5.0-9.0 Urine Specific [place] 1.033 1.001-1.035 Urine Protein 2+ H Negative Urine Ketones Negative Negative Urine Blood 1+ H Negative /uL Urine Nitrite Negative Negative Urine Bilirubin Negative Negative Urine Urobilinogen 3 H Negative mg/dL Urine Leukocyte Esterase 3+ Negative /uL Urine RBC 13 0 - 4 /hpf Urine Microscopic WBC 142 H 0-5 /HPF Urine Squamous Epithelial Cells Mod <5 /hpf Urine Bacteria Few H None Seen /hpf Urine Mucus Few None Seen Urine Glucose Normal Normal mg/dL Microbiology Date/Time Source Procedure Growth Status 04/07/25 06:00 Nose MRSA Screen - Final Complete 04/06/25 12:43 Blood Blood Culture - Preliminary NO GROWTH AFTER 24 HOURS OF INCUBATION. Resulted Assessment Impression: Acute on chronic hypoxic respiratory failure 2/2 pneumonia Dependence on supplemental oxygen Pneumonia, likely GNR Leukocytosis Pleural effusion Atelectasis Bronchiolectasis Pulmonary nodules Methamphetamine use. Plan: Improved oxygen requirements, on room air Supplemental oxygen PRN Titrate to keep O2 sats above 92%. Bronchodilators PRN. Continue antibiotics F/u cultures Monitor WBC Incentive spirometry Antitussive PRN cough IV fluids with NS at 60 ml/hr. Diurese to euvolemia Monitor renal function. Monitor electrolytes. Supplement as necessary. Potassium supplementation Monitor ins and outs. Counseled against substance use. DVT prophylaxis. Prognosis: Poor given patient's multiple co-morbidities. Rest of plan per hospitalist and other consultants. Thank you, CHUCHO Bridges, for allowing me to participate in this patient's care. Further recommendations will depend on the patient's clinical course. Please do not hesitate to contact me if you have any questions or concerns. This medical document was created using an electronic medical record system with Dragon computerized dictation system. Although these documentations are being carefully reviewed, there may still be some phonetic and typographical changes. The errors are purely typographical, due to imperfection on the software program, and do not reflect any compromise in the patient's medical care. Plan discussed with: Patient, Other (RUFINO Horn/) Visit Coding Pulmonary Billing Provider: CALLI CHAIREZ MD Date of Service if different f: Apr 07, 2025 Common Visit Codes: [id number] INP/OBS CARE (HIGH) CALLI CHAIREZ MD Apr 07, 2025 23:08
[2025-04-08] VITALS (8 sets, daily range): BP systolic 133–145; BP diastolic 84–99; PULSE 78–89; RESP 16–18; TEMP 97.6–98.3; O2SAT 96–99
[2025-04-08 06:50] LABS: Hematocrit 36.6 % (36.0-46.0); Hemoglobin 12.5 g/dL (12.2-16.2); Mean Corpuscular Hemoglobin 30.5 pg (28.0-32.0); Mean Corpuscular Volume 89.2 fL (80.0-100.0); Nucleated Red Blood Cells % 0.0 %
[2025-04-08] MEDS: ALBUTEROL SULF 2.5 MG/0.5ML(0.5%) NEB SOLN NEB PRN (10:28)
[2025-04-08] MEDS: IPRATROPIUM BROM 0.5 MG/2.5ML INH SOL NEB PRN (10:28)
[2025-04-08] MEDS: PERMETHRIN 5 % TOPICAL CREAM 60GM TOP ONE (13:00)
[2025-04-08] MEDS ORDERED: DOXY100C79 PO (16:56)
--- NOTE | 2025-04-08 16:56 | DVHDS2 ---
Discharge Summary Date of Admission Apr 06, 2025 at 17:25 Date of Discharge: Apr 08, 2025 Labs/Diagnostic Data: Laboratory Results Test 04/08/25 06:26 04/07/25 21:00 04/07/25 06:19 04/06/25 19:08 White Blood Count 6.1 10^3/uL (4.4-10.8) Red Blood Count 4.11 10^6/uL (4.0-5.20) Hemoglobin 12.5 g/dL (12.2-16.2) Hematocrit 36.6 % (36.0-46.0) Mean Corpuscular Volume 89.2 fL (80.0-100.0) Mean Corpuscular Hemoglobin 30.5 pg (28.0-32.0) Mean Corpuscular Hemoglobin Concent 34.2 g/dL (32.0-36.0) Red Cell Distribution Width 13.6 % (11.8-14.3) Platelet Count 326 10^3/uL (140-450) Mean Platelet Volume 8.4 fL (6.9-10.8) Neutrophils (%) (Auto) 58.6 % (37.0-80.0) Lymphocytes (%) (Auto) 27.0 % (10.0-50.0) Monocytes (%) (Auto) 10.2 % (0.0-12.0) Eosinophils (%) (Auto) 3.5 % (0.0-7.0) Basophils (%) (Auto) 0.7 % (0.0-2.0) Neutrophils # (Auto) 3.6 10 ^3/uL (1.6-8.6) Lymphocytes # (Auto) 1.6 10 ^3/uL (0.4-5.4) Monocytes # (Auto) 0.6 10 ^3/uL (0-1.3) Eosinophils # (Auto) 0.2 10 ^3/uL (0-0.8) Basophils # (Auto) 0 10 ^3/uL (0-0.2) Nucleated Red Blood Cells 0.0 % Influenza Type A Antigen Negative (Negative) Influenza Type B Antigen Negative (Negative) SARS-CoV-2 Antigen (Rapid) Negative (NEGATIVE) Sodium Level 141 mmol/L (136-145) Potassium Level 3.8 mmol/L (3.5-5.1) Chloride Level 105 mmol/L (98-107) Carbon Dioxide Level 27 mmol/L (20-31) Anion Gap 9 (5-15) Blood Urea Nitrogen 9 mg/dL (9-23) Creatinine 0.66 mg/dL (0.550-1.02) Glomerular Filtration Rate Calc 102 mL/min (>90) BUN/Creatinine Ratio 13.6 (10.0-20.0) Serum Glucose 105 mg/dL (74-106) Calcium Level 9.0 mg/dL (8.7-10.4) Total Bilirubin 0.3 mg/dL (0.2-1.0) Aspartate Amino Transferase (AST) 13 U/L (13-40) Alanine Aminotransferase (ALT) 17 U/L (7-40) Alkaline Phosphatase 102 U/L (46-116) Total Protein 6.0 g/dL (5.7-8.2) Albumin 3.4 g/dL (3.2-4.8) Lactic Acid Level 1.3 mmol/L (0.4-2.0) Test 04/06/25 13:34 04/06/25 12:22 Troponin I High Sensitivity < 3 ng/L (</=34) Urine Color Yellow (Yellow) Urine Clarity Turbid (Clear) Urine pH 6.5 (5.0-9.0) Urine Specific [place] 1.033 (1.001-1.035) Urine Protein 2+ (Negative) Urine Ketones Negative (Negative) Urine Blood 1+ /uL (Negative) Urine Nitrite Negative (Negative) Urine Bilirubin Negative (Negative) Urine Urobilinogen 3 mg/dL (Negative) Urine Leukocyte Esterase 3+ /uL (Negative) Urine RBC 13 /hpf (0 - 4) Urine Microscopic WBC 142 /HPF (0-5) Urine Squamous Epithelial Cells Mod /hpf (<5) Urine Bacteria Few /hpf (None Seen) Urine Mucus Few (None Seen) Urine Glucose Normal mg/dL (Normal) Other Laboratory Tests 04/08/25 06:26 04/07/25 06:19 Brief Hx & Hospital Course: 59-year-old female with past medical history of asthma, hypertension, and thyroid disease who presented to [facility] ED with complaint of shortness of breaths. Patient reports that she has been experiencing shortness of breaths associated with right lower chest pain for the past 3 days. Patient reports that she was seen at [facility] 2 days ago where she was diagnosed with pneumonia, but she had no relief from the care she received there, leaving [place]. 04/07: 59 female here with shortness of breath cough. Leukocytosis, lactic acidosis. Admitted for acute pneumonia Gram-negative Gram-positive. Patient is started on azithromycin ceftriaxone. We will also put in prn Atrovent 0.5 q.6 PRN and albuterol 0.25 q.6 PRN. Patient also knees COVID flu swab. Continue slow fluids 04/08: Patient breathing improving, shortness breath improving, no oxygen requirement. Patient has had recurrent bouts of infection, likely needs to can turn pneumococcal vaccine w PCP. Today we will discharge with vital signs stable, discharge with doxycycline 100 b.i.d.. 7 days. diagnosis: Sepsis due to below Pneumonia, Gram-negative Gram-positive likely Hypokalemia Leukocytosis, unspecified respiratory failure ruled out Generalized weakness Plan: -Doxycycline 100 mg twice daily for 7 days - continue other home medications -Follow up with PCP to review discharge -[place] clinic follow up 1 week Condition at Discharge: Fair Final Diagnosis/Problems List Sepsis due to below Pneumonia, Gram-negative Gram-positive likely Hypokalemia Leukocytosis, unspecified respiratory failure ruled out Generalized weakness Discharge Disposition: Home Discharge Instruct/Medications Scheduled Amlodipine Besylate (Amlodipine Besylate), 1 TAB PO HS, (Reported) Gabapentin (Once-Daily) (Gabapentin), 800 MG PO TID, (Reported) Lorazepam (Ativan Tablet), 1 TAB PO HS, (Reported) Metoprolol Succinate (Metoprolol Succinate Er), 10 MG PO DAILY, (Reported) Miscellaneous Medications Fluticasone-Salmeterol (Fluticasone Propionate/SA 100-50 Mcg/Dose), 1 AER IN, (Reported) Lidocaine (Lidoderm 5% Topical Patch), 1 PATCH TOP, (Reported) Discharge Statement: "Patient was advised to return to the ER or call 911 if any headaches, dizziness, shortness of breath, chest pain, abdominal pain, bleeding, fevers, or worsening of medical condition. Patient was counseled about treatment plan, medications, possible side effects, patientverbalized understanding. All questions were answered to the best of my ability. This discharge took greater then 30 minutes in planning, reviewing documentation, counseling the patient, and discussing with other team members." ASSESSMENT ASSESSMENT Assessment Date of Service: Apr 08, 2025 Billing Provider: JOSE RAMON EVERETT MD Common Visit Codes: 36965-VXB/OBS DISCH DAY >30min JOSE RAMON EVERETT MD Apr 08, 2025 16:56
--- NOTE | 2025-04-08 23:15 | DVHPN2 ---
Subjective DOS: 04/08/2025 Patient seen and examined at bedside. Breathing comfortably on room air. Overnight events reviewed. Reviewed: H&P Changes from previous H/P or p: No Changes General: Per HPI Eyes: No Pain, No Vision change, No Conjunctivae inflammation, No Eyelid inflammation, No Other, No Redness ENT: No Ear pain, No Ear discharge, No Nose pain, No Nose discharge, No Nose congestion, No Mouth pain, No Mouth swelling, No Throat pain, No Throat swelling, No Other Cardiovascular: Chest Pain; No Palpitations, No Orthopnea, No Paroxysmal Noc. Dyspnea, No Edema, No Lt Headedness, No Other Respiratory: No Cough, No Dry; Shortness of breath; No SOB with excertion, No Wheezing, No Hemoptysis, No Pleuritic Pain, No Sputum; Other (SOB at rest) Gastrointestinal: No Nausea, No Vomiting, No Abdominal Pain, No Diarrhea, No Constipation, No Melena, No Hematochezia, No Other Genitourinary: No Dysuria, No Frequency, No Incontinence, No Hematuria, No Retention, No Other Musculoskeletal: No other, No neck pain, No shoulder pain, No arm pain, No back pain, No hand pain, No leg pain, No foot pain Skin: No Rash, No Lesions, No Jaundice, No Bruising, No Other Objective Vitals Vital Signs Date Time Temp Pulse Resp B/P (MAP) Pulse Ox O2 Delivery O2 Flow Rate FiO2 04/08/25 16:52 98.0 82 18 133/89 (104) 99 98.0 04/08/25 10:28 Room Air* 0 21 Intake/Output Intake and Output 04/08/25 07:00 Intake Total 3140 ml Balance 3140 ml Intake Oral 2840 ml IV Total 300 ml # Voids 11 # Bowel Movements 3 Exam Gen.: Patient lying in bed in no apparent distress. Breathing on room air. Head: Normocephalic, atraumatic. Eyes: EOMI/PERRLA. Ears: Normal hearing. Normal anatomy. Neck/trachea: Trachea midline, supple. Nose: Normal external anatomy. Mouth: Moist mucous membranes. Chest: Decreased air entry bilaterally. No wheezing or rhonchi. Cardiovascular: Positive S1, positive S2. Regular rate and rhythm. Abdomen: Positive bowel sounds in all 4 quadrants. Soft, non-tender, non- distended. : Deferred. Rectal: Deferred. Skin: Warm, dry. Intact. Extremities: 2+ radial pulses bilaterally. No lower extremity edema. Neuro: Awake, alert, oriented x3. No gross motor or sensory deficits. Cranial nerves II through XII intact. Gait not assessed. Laboratory Results Laboratory Tests 04/07/25 06:19 04/08/25 06:26 Urinalysis Test 04/06/25 12:22 Urine Color Yellow (Yellow) Urine Clarity Turbid (Clear) H Urine pH 6.5 (5.0-9.0) Urine Specific [place] 1.033 (1.001-1.035) Urine Protein 2+ (Negative) H Urine Ketones Negative (Negative) Urine Blood 1+ /uL (Negative) H Urine Nitrite Negative (Negative) Urine Bilirubin Negative (Negative) Urine Urobilinogen 3 mg/dL (Negative) H Urine Leukocyte Esterase 3+ /uL (Negative) Urine RBC 13 /hpf (0 - 4) Urine Microscopic WBC 142 /HPF (0-5) H Urine Squamous Epithelial Cells Mod /hpf (<5) Urine Bacteria Few /hpf (None Seen) H Urine Mucus Few (None Seen) Urine Glucose Normal mg/dL (Normal) Microbiology Microbiology Date/Time Source Procedure Growth Status 04/07/25 06:00 Nose MRSA Screen - Final Complete 04/06/25 12:43 Blood Blood Culture - Preliminary NO GROWTH AFTER 48 HOURS OF INCUBATION. Resulted Assessment/Plan Assessment/Plan Impression: Acute on chronic hypoxic respiratory failure 2/2 pneumonia Pneumonia, likely GNR Leukocytosis Pleural effusion Atelectasis Bronchiolectasis Pulmonary nodules Methamphetamine use. Events: Remains on room air Supplemental oxygen PRN Continue antibiotics - recommend to complete course Incentive spirometry Obtain outpatient PET CT vs. CT chest w/ contrast in 6 to 8 weeks for followup. Labs and imaging reviewed. Rest of plan as noted below. Plan: Supplemental oxygen PRN Titrate to keep O2 sats above 92%. Bronchodilators PRN. Continue antibiotics F/u cultures Monitor WBC Incentive spirometry Antitussive PRN cough IV fluids with NS at 60 ml/hr. Diurese to euvolemia Monitor renal function. Monitor electrolytes. Supplement as necessary. Potassium supplementation Monitor ins and outs. Counseled against substance use. DVT prophylaxis. Prognosis: Poor given patient's multiple co-morbidities. Rest of plan per hospitalist and other consultants. Thank you, CHUCHO Bridges, for allowing me to participate in this patient's care. Further recommendations will depend on the patient's clinical course. Please do not hesitate to contact me if you have any questions or concerns. This medical document was created using an electronic medical record system with [employer]V dictation system. Although these documentations are being carefully reviewed, there may still be some phonetic and typographical changes. The errors are purely typographical, due to imperfection on the software program, and do not reflect any compromise in the patient's medical care. Plan discussed with: Patient, Other (RUFINO Davison) Visit Coding Pulmonary Billing Provider: CALLI CHAIREZ MD Date of Service if different f: Apr 08, 2025 Common Visit Codes: [id number] INP/OBS CARE(HIGH) CALLI CHAIREZ MD Apr 08, 2025 23:15
== END 2025-04-08 19:32 | disposition home or self-care (01) | DRG 720 ==
LOC: EDBD 10:45 → ER 10:45 → EDUNIT# 10:45 → OVERFLOW 17:25 → TELE-WESTW 21:37
PROVIDERS: ADMIT Student in an Organized Health Care Education/Training Program; ATTEND Student in an Organized Health Care Education/Training Program
DX: A41.59 Other Gram-negative sepsis (principal); J15.69 Pneumonia due to other Gram-negative bacteria; E87.20 Acidosis, unspecified; J15.9 Unspecified bacterial pneumonia; I10 Essential (primary) hypertension; J45.909 Unspecified asthma, uncomplicated; E87.6 Hypokalemia; J98.11 Atelectasis; F15.90 Other stimulant use, unspecified, uncomplicated; Z99.81 Dependence on supplemental oxygen; Z82.49 Family history of ischemic heart disease and other diseases of the circulatory system; Z79.899 Other long term (current) drug therapy
CPT/HCPCS: 36415; 71045; 71250; 80048; 80053; 81001; 83605; 84484; 85025; 87040; 87081; 87426; 87804; 93005; 94640; G0378; J3480